=== PATIENT | female | born 1955 | race Caucasian/White ===

== ENCOUNTER → 2016-11-22 | Outpatient (CLI) | payer OTHER ==
[~2016-11-22] MED LIST: ADVIL200 MG PO; LEXAPRO20 MG PO; LIPITOR10 MG PO; NORCO 5-325 TA1 EACH PO; PRINIVIL (ZESTR20 MG PO
== END ==
LOC: GBCOE 14:29
DX: N63 Unspecified lump in breast (principal)
CPT/HCPCS: G0204; G0279

== ENCOUNTER → 2016-12-08 | Day surgery (SDC) | payer OTHER ==
[~2016-12-08] VITALS: Ht 165.1 cm; Wt 71.1 kg
--- NOTE | ~2016-12-08 | OR ---
PATIENT'S NAME: SARAH CORDOVA [facility] AGE: 61 Y [address] ROOM: [place] [address] LOCATION: [facility] [place] ADMIT DATE: 12/08/2016 OR/Procedure Report DISCHARGE DATE: FAMILY PHYSICIAN: Jeanna Calderón MD ATTENDING PHYSICIAN: Fitz Valderrama SURGEON: Fitz Valderrama MD GAS WELDING MACHINE OPERATOR: Ruchi Carballo PA-C. DATE OF PROCEDURE: 12/08/2016 PREOPERATIVE DIAGNOSIS: Right breast cancer. POSTOPERATIVE DIAGNOSIS: Right breast cancer. PROCEDURE: 1. Right breast partial mastectomy. 2. Right axillary sentinel lymph node biopsy. 3. Left subclavian port placement. 4. Injection of blue dye. FINDINGS: The margins on the tumor were grossly negative. [place] node was identified without much difficulty. ESTIMATED BLOOD LOSS: Less than 50 mL. COMPLICATIONS: None. INDICATIONS: The patient is a 61-year-old female who was diagnosed with a triple positive breast cancer. We discussed various options with her with risks, benefits, and alternatives of each of these options. Ultimately, she wished to proceed with partial mastectomy and sentinel node biopsy. We also discussed port placement with a feeling that she would likely need adjuvant chemo. Risks, benefits, and alternatives were discussed of each of these, and she wished to proceed. DESCRIPTION OF PROCEDURE: Preoperatively, the patient was injected with radiocolloid. She was then taken to the operating room where she was supine. She was given IV, she had IV sedation, subsequently intubated. Her chest, neck, and axilla were prepped and sterilely draped. Local anesthetic was infiltrated beneath the left clavicle. An access needle was inserted in subclavian vein followed by wire access. Fluoroscopy confirmed the wire to be in appropriate position. Following this, a transverse incision was created encompassing the wire. This was carried into subcutaneous tissues using electrocautery. This was carried down to the chest wall. A subcutaneous pocket was created. Sheath and dilator were advanced over the wire. The wire and dilator were then removed. The catheter was then inserted through the PATIENT'S NAME: SARAH CORDOVA [facility] AGE: 61 Y [address] ROOM: [place] [address] LOCATION: [facility] [place] ADMIT DATE: 12/08/2016 OR/Procedure Report DISCHARGE DATE: FAMILY PHYSICIAN: Jeanna Calderón MD ATTENDING PHYSICIAN: Fitz Valderrama sheath. The sheath was removed. Using fluoroscopy, the tip of the catheter was positioned near the atriocaval junction, this was cut to its appropriate length. The locking hub was placed on the catheter. The port was then placed on the catheter. The locking hub was secured. The port was placed into the subcutaneous pocket and secured to the chest wall using 2-0 Prolene suture. The port was aspirated, it aspirated blood and was flushed with heparinized saline. The deep dermal layers were approximated with 3-0 Vicryl suture and the skin was closed with 4-0 Monocryl suture. Steri-Strips and sterile dressings were placed. Following this, the sentinel lymph node was attended to. Just after intubation, we did inject 5 mL of dilute methylene blue in the subareolar region. The mass in the right breast was near the 1 o'clock position. This was palpable quite superficial. Because of this, we did make an elliptical incision surrounding the most superficial portion of the mass. This was then carried down into the subcutaneous tissues. Very thin skin flaps were created. The mass was palpable, dissected around circumferentially, and removed. This was marked for orientation. Prior to doing this, we did perform a sentinel lymph node biopsy using the Neoprobe for guidance as well as the blue dye. A transverse incision was created in the axilla and carried into the subcutaneous tissues down to the axillary fat pad. We were able to identify the sentinel node. It was a blue node, this was dissected around circumferentially with electrocautery. The counts on this lymph node were greater than 5000. Immediately adjacent to this, there appeared to be another small node present. These were sent as sentinel lymph nodes. The operative field was then further inspected with the Neoprobe. Further counts were less than 100 and no other significant blue dye was present. The deep dermal layers in this incision were approximated with 3-0 Vicryl suture and skin was closed with 4-0 Monocryl suture. Steri-Strips and sterile dressings were placed on all of these areas. The patient was extubated and sent to recovery in good condition. FITZ MD SARATH BRASHER/isidrol /[id number] d: 12/08/16 1838 t: 12/16/16 1502, OPERATIVE SUMMARY
== END | disposition disaster alternative care site (69) ==
LOC: GOPD 12-02 → GSDC 06:28 → GOPD 06:30 → EDSTATUS 06:30 → GOPD 07:00
PROC: 0HBT0ZZ Excision of Right Breast, Open Approach (ICD-10-PCS; principal; 2016-12-08)
PROC: 07B50ZX Excision of Right Axillary Lymphatic, Open Approach, Diagnostic (ICD-10-PCS; 2016-12-08)
PROC: 0JH60XZ Insertion of Tunneled Vascular Access Device into Chest Subcutaneous Tissue and Fascia, Open Approach (ICD-10-PCS; 2016-12-08)
DX: C67.2 Malignant neoplasm of lateral wall of bladder (principal); E78.00 Pure hypercholesterolemia, unspecified; I10 Essential (primary) hypertension; Z90.710 Acquired absence of both cervix and uterus; Z98.890 Other specified postprocedural states; Z79.899 Other long term (current) drug therapy
CPT/HCPCS: A9520; C1788; J0690; J1100; J1642; J2001; J2405; J3010; J7120; Q9968

== ENCOUNTER → 2016-12-21 | Outpatient (CLI) | payer OTHER | END | disposition disaster alternative care site (69) | LOC: LKCL 16:03 | DX: T14.8 Other injury of unspecified body region (principal) ==